=== PATIENT | male | born 1950 | race Two or more races ===

== ENCOUNTER 2017-01-12 14:40 | Emergency (ER) | payer MEDICAID, OTHER ==
[2017-01-12] MEDS ORDERED: ONDANSETRON 4 MG/2 ML VIAL ONE ×2 (14:47→16:06)
[2017-01-12] MEDS ORDERED: IOPAMIDOL (ISOVUE-300) 100 ML BTL IV ONE (14:55)
--- NOTE | 2017-01-12 14:55 | EDPHY ---
H & P Smoking Status: Former smoker HPI/ROS: CHIEF COMPLAINT: chest pain, head trauma HISTORY OF PRESENT ILLNESS: Patient is a 66-year-old limited trauma activation who presents to the emergency department with multiple complaints. 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 He thought that the tree was going one direction and then saw that it was coming towards him. He attempted to move the tree struck him in the back. He struck his face on the ground. He had a brief LOC (reported 30 seconds). The patient complains of mild headache. He has left flank/back pain with mild shortness of breath. No hemoptysis. Patient denies chest pain or abdominal pain. No pelvic pain. No extremity pain. EMS reports that the patient has palpable crepitus on the left side/left flank area. The patient's vital signs were stable. Sugar was greater than 200. Patient was given fentanyl 50 mcg IV in route. REVIEW OF SYSTEMS: My complete review of systems is negative except as mentioned in the HPI. ( Salina Savage) Past Medical/Surgical History: Denies Past surgical history: Denies Social history: Patient does not smoke. Does not use alcohol. (Salina Savage S) Physical Exam: Vitals noted. 142/73, 90, sat 92% GENERAL: No acute distress, alert. C-collar in place. HEAD: patient has dried blood in swelling over his right brow. Patient has abrasion over the bridge of his nose. No hematoma. No palpable mass or crepitus. Wound was cleaned. The patient has a 3 cm right brow irregular laceration. No palpable foreign body. EYES: PERRLA, EOMI, normal to inspection. ENT: Airway intact, no dental or oral injury, no malocclusion, no hemotympanum , normal external examination. NECK: The trachea is midline. There is no crepitus. The C-spine is nontender. NEXUS criteria is negative (no midline tenderness, no distracting injury, no altered mental status, no recent alcohol use, no focal neurologic deficit). RESPIRATORY: Clear to auscultation bilaterally, no rales, rhonchi or wheezing. Patient has left lateral/lower crepitus. CVS: Regular rate and rhythm, no rubs, murmurs, or gallops. ABDOMEN: Soft, nontender, nondistended, normal bowel sounds. There is a notable abrasion in the suprapubic region. Pelvis: Stable. No tenderness palpation. Hips full range of motion. Abrasion left hip. GENITAL/RECTAL: Normal external exam. BACK: left flank crepitus. No bruising. Normal to inspection, no spinal tenderness, no spinal step off, no notable bruising or abrasions. SKIN: Normal color, warm, dry. No pallor or diaphoresis. EXTREMITIES: Right upper extremity: Abrasion forearm. No tenderness palpation. Neurovascular intact distally. Left upper extremity: Atraumatic. No visible signs of trauma. No tenderness palpation. Neurovascular intact distally. Right lower extremity: Abrasion knee. Ligaments stable. FROM. No visible signs of trauma. No tenderness palpation. Neurovascular intact distally. Left lower extremity: Atraumatic. Ligaments stable. FROM. No tenderness palpation. Neurovascular intact distally. Atraumatic, neurovascularly intact distally in all extremities, pelvis is stable , hips with full range of motion, moves all extremities freely. NEURO/PSYCH: Alert and oriented x 3, GCS 15, normal mood and affect, normal motor sensory exam. (Salina Savage S) Constitutional: Initial Vital Signs Temperature (C) 36.4 C 01/12/17 15:03 Heart Rate 80 01/12/17 15:03 Respiratory Rate 16 01/12/17 15:03 Blood Pressure 140/84 H 01/12/17 15:03 O2 Sat (%) 94 01/12/17 15:03 O2 Delivery Mode Room Air Allergies/Adverse Reactions: No Known Allergies Allergy (Unverified 01/12/17 15:02) Home Medications: Medication Instructions Recorded Cephalexin [Keflex] 500 mg PO QID 5 Days 09/23/15 oxyCODONE/APAP 5/325 [Percocet 1 - 2 tab PO Q6H PRN #20 tab 09/23/15 5/325] Lidocaine 5% [Lidoderm 5% Patch 1 ea TD DAILY #0 patch 01/12/17 (*)] Ondansetron Odt [Zofran Odt 4 mg 4 mg PO Q4PRN PRN #7 tab 01/12/17 (*)] oxyCODONE/APAP 5/325 [Percocet 1 - 2 tab PO Q4PRN PRN #11 tab 01/12/17 5/325 (*)] Medical Decision Making Procedures: My involvement in the care this patient solely for the repair of the laceration. Please see the note of Dr. Savage for all other aspects of care PROCEDURE: Laceration repair Consent: Verbal Location: right eyebrow Length of repair: 3 cm Complexity: moderate Layer involvement: single Anesthesia: local, performed by Dr. Svaage Irrigation: Extensive Debridement: minimal Procedure description: after anesthetizing, irrigating and minimal debridement , wound margins were approximated with 9, simple interrupted sutures without complication. Good approximation of the wound margins. Hemostasis noted. There is no foreign body in the wound bed prior to closing. Suture/Staple material: 6-0 Prolene, 9 simple interrupted Wound care: Routine as discussed Suture/Staple removal: 5-7 Days (Valentino Parham) Procedure: Trauma ultrasound. Limited echocardiogram for pericardial effusion. Limited bedside ultrasound was performed and interpreted by myself for the indication of: thoracoabdominal trauma utilizing the thoracoabdominal emergency ultrasound protocol. Limited transthoracic echocardiogram: The pericardium was visualized and found to be negative for pericardial fluid. The study was negative for pericardial effusion. Limited abdominal ultrasound for blunt abdominal trauma. 1) The right upper quadrant was visualized and was found to be negative for intraperitoneal fluid. 2) The left upper quadrant was visualized and found to have a good interface between the kidney and spleen. However there was noted free fluid superior to kidney. The study was felt to be positive for free fluid. Limited pelvic ultrasound was conducted for abdominal trauma. The bladder was visualized and did not reveal an anechoic area outside of the adjacent urinary bladder. The study was felt to be negative for free intraperitoneal fluid. (Salina Savage) ED Course/Re-evaluation: I met EMS on arrival. The patient was limited trauma activation. Patient's initial vital signs were noted to be normal. The patient had a bedside fast exam. This revealed fluid in the left gutter. Please refer the dictated report. I contacted Trauma surgery. With stable vital signs CT scan was ordered. I discussed the plan with the patient. I answered all his questions. Patient did not want more pain medication at this time. [place] [address]. Chemistry panel was notable for platelets being low at 70. I compared this with previous platelet count in 2014 which was greater than 300. On recheck the patient is stable. He has no new complaints. No new respiratory distress. On recheck the patient had repeat episodes of nausea. He is given Zofran 4 mg IV. No new respiratory distress. Clear breath sounds bilaterally. Patient refused pain medication. I discussed the case with Dr. Lopez from the trauma service. Both Dr. Lopez and myself reviewed the images with Dr. Иван Hutton. Please refer the dictated report by Dr. Hutton. Patient is noted to have multiple rib fractures as well as a small pneumothorax. The patient has a hemothorax. No intraperitoneal injury. Head and C-spine CTs were negative. I discussed the treatment plan with Dr. Lopez. He recommend the patient received Toradol and fentanyl. These were given for pain control. Patient does not need a chest tube at this time based on his images and clinical presentation. 16 15: I rechecked the patient. He had no neurologic deficits. No C-spine tenderness palpation. His C-collar was removed. Patient had his laceration repaired by the PA. Please refer the dictated note. Dr. Lopez was in the room to evaluate the patient. Dr. Lopez states the patient does not want admission. Patient ambulated to the bathroom well. I observed the patient while he ambulated. 1640: My recommendation was for admission. I discussed this at length with the patient. However, the patient does not want admission at this time. I discussed the reasons for admission and answered his questions. I discussed my concern with his low platelet level, elevated white count level, rib fractures, hemothorax and small pneumothorax. Patient was competent to make his decisions. I again discussed the case with Dr. Lopez. He recommends a lidocaine patch in addition to his other medications. He recommends the patient return tomorrow for repeat CXR. Patient was given incentive spirometer. The patient is aware the plan. He was given warnings prior to leaving. He will return with worsening symptoms. (Salina Savage S) Differential Diagnosis: My differential includes but is not limited to rib fracture, hemothorax, pneumothorax, kidney injury, subarachnoid hemorrhage, subdural hematoma, epidural hematoma, spinal injury, bladder injury, pelvic injury, laceration, abrasion (Salina Savage S) Critical Care Time: The patient required 35 minutes of critical care time. This was exclusive of any unbundled procedure. This was due to the patient's presentation, noted crepitus, need for frequent rechecks, fluid seen on ultrasound, consultation with trauma service. (Salina Savage) - Data Points Laboratory Results: Laboratory Results 01/12/17 14:59 01/12/17 14:59 01/12/17 01/12/17 01/12/17 16:40 16:01 14:59 WBC 17.17 H 10^3/uL (3.80-9.50) RBC 4.63 10^6/uL (4.40-6.38) Hgb 14.3 g/dL (13.7-17.5) POC Hgb Hct 43.1 % (40.0-51.0) POC Hct MCV 93.1 fL (81.5-99.8) MCH 30.9 pg (27.9-34.1) MCHC 33.2 g/dL (32.4-36.7) RDW 13.6 % (11.5-15.2) Plt Count 70 L 10^3/uL (150-400) MPV 8.5 L fL (8.7-11.7) Neut % (Auto) 81.4 H % (39.3-74.2) Lymph % (Auto) 12.4 L % (15.0-45.0) Platte % (Auto) 4.2 L % (4.5-13.0) Eos % (Auto) 0.5 L % (0.6-7.6) Baso % (Auto) 0.3 % (0.3-1.7) Nucleat RBC Rel Count 0.0 % (0.0-0.2) Absolute Neuts (auto) 13.96 H 10^3/uL (1.70-6.50) Absolute Lymphs (auto) 2.13 10^3/uL (1.00-3.00) Absolute Monos (auto) 0.72 10^3/uL (0.30-0.80) Absolute Eos (auto) 0.09 10^3/uL (0.03-0.40) Absolute Basos (auto) 0.06 10^3/uL (0.02-0.10) Absolute Nucleated RBC 0.00 10^3/uL (0-0.01) Immature Gran % 1.2 H % (0.0-1.1) Immature Gran # 0.21 H 10^3/uL (0.00-0.10) PT 13.7 SEC (12.0-15.0) INR 1.06 (0.83-1.16) APTT 22.5 L SEC (23.0-38.0) POC Sodium Sodium 141 mEq/L (134-144) POC Potassium Potassium 4.8 mEq/L (3.5-5.2) POC Chloride Chloride 102 mEq/L (97-110) Carbon Dioxide 27 mEq/l (22-31) Anion Gap 12 mEq/L (8-16) POC BUN BUN 12 mg/dL (7-23) Creatinine 0.8 mg/dL (0.7-1.3) POC Creatinine Estimated GFR > 60 Glucose 170 H mg/dL (70-100) POC Glucose Calcium 8.9 mg/dL (8.5-10.4) Specimen Hemolysis 154 Urine Color YELLOW Urine Appearance HAZY Urine pH 6.0 (5.0-7.5) Ur Specific Anderson > 1.035 H (1.002-1.030) Urine Protein NEGATIVE (NEGATIVE) Urine Ketones NEGATIVE (NEGATIVE) Urine Blood NEGATIVE (NEGATIVE) Urine Nitrate NEGATIVE (NEGATIVE) Urine Bilirubin NEGATIVE (NEGATIVE) Urine Urobilinogen NEGATIVE EU (0.2-1.0) Ur Leukocyte Esterase NEGATIVE (NEGATIVE) Ur Culture Indicated? NOT INDICATED (NI) Urine Glucose NEGATIVE (NEGATIVE) Patient ABO/Rh B POSITIVE Antibody Screen NEGATIVE 01/12/17 14:47 WBC RBC Hgb POC Hgb 15.0 gm/dL (14.5-17.3) Hct POC Hct 44 % (42.8-50.6) MCV MCH MCHC RDW Plt Count MPV Neut % (Auto) Lymph % (Auto) Platte % (Auto) Eos % (Auto) Baso % (Auto) Nucleat RBC Rel Count Absolute Neuts (auto) Absolute Lymphs (auto) Absolute Monos (auto) Absolute Eos (auto) Absolute Basos (auto) Absolute Nucleated RBC Immature Gran % Immature Gran # PT INR APTT POC Sodium 140 mEq/L (134-144) Sodium POC Potassium 3.2 L mEq/L (3.3-5.0) Potassium POC Chloride 101 mEq/L (96-108) Chloride Carbon Dioxide Anion Gap POC BUN 11 mg/dL (7-23) BUN Creatinine POC Creatinine 0.9 mg/dL (0.8-1.5) Estimated GFR Glucose POC Glucose 174 H mg/dL (70-100) Calcium Specimen Hemolysis Urine Color Urine Appearance Urine pH Ur Specific Anderson Urine Protein Urine Ketones Urine Blood Urine Nitrate Urine Bilirubin Urine Urobilinogen Ur Leukocyte Esterase Ur Culture Indicated? Urine Glucose Patient ABO/Rh Antibody Screen Medications Given: Discontinued Medications Fentanyl (Sublimaze) 50 mcg IVP EDNOW ONE Stop: 01/12/17 16:17 Last Admin: 01/12/17 16:18 Dose: 50 mcg Ketorolac Tromethamine (Toradol) 30 mg IVP EDNOW ONE Stop: 01/12/17 16:17 Last Admin: 01/12/17 16:18 Dose: 30 mg Ondansetron HCl (Zofran) 4 mg IVP EDNOW ONE Stop: 01/12/17 16:17 Last Admin: 01/12/17 16:18 Dose: 4 mg Point of Care Test Results: 01/12/17 14:47 POC Sodium 140 POC Potassium 3.2 L POC Chloride 101 POC BUN 11 POC Creatinine 0.9 POC Glucose 174 H Departure - Departure Disposition: Home, Routine, Self-Care Clinical Impression: Hemothorax on left, Pneumothorax on left Facial laceration Qualifiers: Encounter type: initial encounter Qualifier Code: (S01.81XA) Laceration without foreign body of other part of head, initial encounter Rib fractures Qualifiers: Encounter type: initial encounter Rib fracture type: multiple ribs Fracture type: closed Laterality: left Qualifier Code: (S22.42XA) Multiple fractures of ribs, left side, initial encounter for closed fracture Contusion of face Qualifiers: Encounter type: initial encounter Qualifier Code: (S00.83XA) Contusion of other part of head, initial encounter Condition: Good Instructions: Oxycodone/Acetaminophen (By mouth), Ondansetron (By mouth), Traumatic Pneumothorax (ED), Laceration (ED), Rib Fracture (ED), Concussion (ED) , Thrombocytopenia (ED) Additional Instructions: I recommended that you be admitted to the hospital for further observation. You have both a pneumothorax and hemothorax. These are likely secondary to trauma and rib fractures. I have concerns that these could enlarging it worse. If you have increasing shortness of breath or chest pain you should return immediately to the emergency department. Also return if you have increasing headache, neck pain, weakness or numbness. You have a low platelet count. This needs to be worked up by your primary care physician. YOU NEED TO RETURN TOMORROW TO HAVE A REPEAT CHEST X-RAY. Your sutures need to be removed in 7 days. Referrals: David Alejandra MD [Medical Doctor] - 3-4 days, if not improved Carmen Murdock MD [Medical Doctor] - 2-3 days, call for appt. Prescriptions: Lidocaine 5% [Lidoderm 5% Patch (*)] 1 ea TD DAILY #0 patch oxyCODONE/APAP 5/325 [Percocet 5/325 (*)] 1 - 2 tab PO Q4PRN PRN #11 tab PRN Reason: For Moderate To Severe Pain Ondansetron Odt [Zofran Odt 4 mg (*)] 4 mg PO Q4PRN PRN #7 tab PRN Reason: For Nausea & Vomiting
[2017-01-12 15:04] LABS: % IMMATURE GRANULYOCYTES 1.2 % (0.0-1.1); ABSOLUTE IMMATURE GRANULOCYTES 0.21 10^3/uL (0.00-0.10); ADD DIFF? NO; ADD MORPH? NO; ADD SCAN? NO; ATYPICAL LYMPHOCYTE FLAG 0 (0-99); FRAGMENT RBC FLAG 0 (0-99); HEMATOCRIT 43.1 % (40.0-51.0); HEMOGLOBIN 14.3 g/dL (13.7-17.5); LEFT SHIFT FLG 20 (0-99); LIPEMIA HEMOLYSIS FLAG 80 (0-99); MEAN CELL HEMOGLOBIN 30.9 pg (27.9-34.1); MEAN CELL HEMOGLOBIN CONCENTR. 33.2 g/dL (32.4-36.7); MEAN CELL VOLUME 93.1 fL (81.5-99.8); MEAN PLATELET VOLUME 8.5 fL (8.7-11.7); PLATELET CLUMPS FLAG 40 (0-99); PLATELET COUNT 70 10^3/uL (150-400); RED BLOOD CELL COUNT 4.63 10^6/uL (4.40-6.38); RED CELL DISTRIBUTION WIDTH 13.6 % (11.5-15.2)
[2017-01-12 15:22] LABS: ANION GAP 12 mEq/L (8-16); CALCIUM 8.9 mg/dL (8.5-10.4); CARBON DIOXIDE 27 mEq/l (22-31); CHLORIDE 102 mEq/L (97-110); CREATININE 0.8 mg/dL (0.7-1.3); GLOMERULAR FILTRATION RATE > 60; GLUCOSE 170 mg/dL (70-100); POTASSIUM 4.8 mEq/L (3.5-5.2); SODIUM 141 mEq/L (134-144); SPECIMEN HEMOLYSIS 154
--- NOTE | 2017-01-12 15:42 | CT ---
1. CT Head Without Contrast History: Struck in back of head while cutting tree. Technique: Noncontrast images through the head. Soft tissue and bone window evaluation is performed. Dose reduction techniques were utilized. Findings: There is no evidence for hemorrhage, mass lesion, acute infarction, intracranial edema, hyd rocephalus or abnormal intracranial calcification. No subarachnoid blood is identified. There is no m idline shift. The ambient cistern is patent. Bone window evaluation reveals normally aerated paranasa l and mastoid sinuses. There is chronic nodular mucosal thickening involving both maxillary sinuses. There is no evidence of pneumocephalus or a basilar skull fracture. There is soft tissue swelling ove rlying the right upper orbit region without underlying facial bone fracture. Impression: No acute posttraumatic cranial or intracranial abnormality identified. 2. CT Cervical Spine Without Contrast History: Trauma. Hit in head by tree. Technique: Multislice helical CT through the cervical spine without contrast from the skull base to T 1. Soft tissue and bone evaluation is performed. Sagittal and coronal reconstructions are obtained an d reviewed. Dose reduction techniques were utilized. Findings: Cervical alignment is anatomic. No fracture or dislocation is identified. The relationship between skull base and C1 is normal. The C1-C2 articulation is normally aligned, but associated with osteoarthritis.. The odontoid process is intact. There is moderate degenerative narrowing of the C5-C 6 disk space which is associated with marginal sclerosis , osteophyte formation and a vacuum disk phe nomenon. There is degenerative disk bulging or protrusion at all cervical disk levels. Facet joints a re normally aligned. The cervical thoracic junction is normally aligned. Soft tissue window evaluati on does not show evidence of epidural or prevertebral hematoma. Incidentally noted is benign sclerosi s in the left mandibular condyle neck and in the right C6 articular pillar. Impression: No acute posttraumatic abnormality identified. Results called and discussed with SAURABH GOMEZ, at 01/12/2017 15:40 Final results are concordant with the initial interpretation. General information for patients regarding this examination can be found at [email or web address]. If you have questions or comments about this report, please contact me at [phone] (hospital) or [phone] (cell). General information for patients regarding this examination can be found at [email or web address]. If you have questions or comments about this report, please contact me at [phone] (hospital) or [phone] ([facility]).
--- NOTE | 2017-01-12 15:42 | CT ---
1. CT Head Without Contrast History: Struck in back of head while cutting tree. Technique: Noncontrast images through the head. Soft tissue and bone window evaluation is performed. Dose reduction techniques were utilized. Findings: There is no evidence for hemorrhage, mass lesion, acute infarction, intracranial edema, hyd rocephalus or abnormal intracranial calcification. No subarachnoid blood is identified. There is no m idline shift. The ambient cistern is patent. Bone window evaluation reveals normally aerated paranasa l and mastoid sinuses. There is chronic nodular mucosal thickening involving both maxillary sinuses. There is no evidence of pneumocephalus or a basilar skull fracture. There is soft tissue swelling ove rlying the right upper orbit region without underlying facial bone fracture. Impression: No acute posttraumatic cranial or intracranial abnormality identified. 2. CT Cervical Spine Without Contrast History: Trauma. Hit in head by tree. Technique: Multislice helical CT through the cervical spine without contrast from the skull base to T 1. Soft tissue and bone evaluation is performed. Sagittal and coronal reconstructions are obtained an d reviewed. Dose reduction techniques were utilized. Findings: Cervical alignment is anatomic. No fracture or dislocation is identified. The relationship between skull base and C1 is normal. The C1-C2 articulation is normally aligned, but associated with osteoarthritis.. The odontoid process is intact. There is moderate degenerative narrowing of the C5-C 6 disk space which is associated with marginal sclerosis , osteophyte formation and a vacuum disk phe nomenon. There is degenerative disk bulging or protrusion at all cervical disk levels. Facet joints a re normally aligned. The cervical thoracic junction is normally aligned. Soft tissue window evaluati on does not show evidence of epidural or prevertebral hematoma. Incidentally noted is benign sclerosi s in the left mandibular condyle neck and in the right C6 articular pillar. Impression: No acute posttraumatic abnormality identified. Results called and discussed with SAURABH GOMEZ, at 01/12/2017 15:40 Final results are concordant with the initial interpretation. General information for patients regarding this examination can be found at [email or web address] If you have questions or comments about this report, please contact me at [phone] (hospital) or [phone] (cell). General information for patients regarding this examination can be found at [email or web address]. If you have questions or comments about this report, please contact me at [phone] (hospital) or [phone] ([facility]).
--- NOTE | 2017-01-12 16:03 | CT ---
1. CTA Scan of the Chest (With Contrast), 1513 p.m. Clinical Indications: trauma. Fall after being hit by a tree. Chest pain. Technique: During machine power injection of 90 mL Isovue 300 intravenously, multidetector helical C T imaging was performed from the superior thoracic inlet to the diaphragm. The radiologist manipulat ed images at the computer workstation. Dose reduction techniques were utilized. Findings: The thoracic aorta is normal in size without dissection or mediastinal hematoma. Heart size is normal without pericardial effusion. There is scattered LAD coronary artery atherosclerotic calci fication. There is a small left apical pneumothorax. There are displaced posterior right 10th and 11t h rib fractures. A splinter of the comminuted left 10th and 11th ribs are anteriorly displaced. There are nondisplaced left lateral third through eighth rib fractures there is left pleural fluid, likely hemorrhage. There is a left lower lobe contusion. At the medial left lung base is a long pneumatocel e likely related to a puncture from one of the rib fragments. There is left posterior chest wall subc utaneous emphysema. There are bilateral upper lobe subpleural pleural blebs consistent with emphysema . The left upper lobe and right lung are normally aerated. There is a small amount of compression ate lectasis at the right lung base. There is a mild compression of the T6 vertebral body, likely old sin ce it is associated with exuberant lateral osteophytes. No other thoracic compressions are identified . No obviously acute thoracic spinal fracture is identified. The sternum and manubrium are intact. Impression: 1. Intact mediastinal 2. Multiple left rib fractures. The posterior right 10th and 11th ribs are comminuted and have fragme nts that are anteriorly displaced and likely responsible for a small lung laceration (pneumatocele) a t the medial left base. 3. Small left hemopneumothorax. 4. Old mild T6 compression. CT Scan of the Abdomen and Pelvis (multiphasic-extended study) Clinical Indications: Trauma, fall, hit by tree Technique: Multidetector helical CT imaging was performed through the abdomen and pelvis with the ad ministration of 90 mL Isovue-300 IV contrast and reviewed at multiple windows. Images are obtained th rough the abdomen and pelvis during the arterial phase and then repeated during the portal venous pha se At the discretion of the emergency physician, no gastrointestinal contrast was given. Dose reducti on techniques were utilized. Findings: No contrast extravasation is identified during the arterial or delayed imaging phase. The a bdominal aorta is normal in size and without evidence of dissection or thrombus. The infrarenal abdom inal aorta and common iliac arteries are markedly tortuous. Abdomen: Subcutaneous emphysema from the patient's chest wall injury extends posteriorly along the po sterior margin of the posterior paraspinal musculature to the level of the upper pelvis. The liver is normal. The biliary ducts and gallbladder are unremarkable. The pancreas and spleen are normal. T he adrenal glands and kidneys are normal. There is a small incidental cyst in the lower pole of each kidney. There is no mesenteric edema or abnormal bowel wall enhancement. No free fluid is identified in the abdomen or pelvis. No traumatic sequelae are found. Pelvis: The bladder has a normal contour. There are no masses, free fluid, or free air seen. Mild c ompressions of L1, L2 and L5 superior endplates are likely old. There is prominent sclerosis in the right side of the L3 vertebral body. There is a benign bone island in the right femoral neck. Impression: No acute posttraumatic abnormality within the abdomen and pelvis. Final concordant results communicated to SAURABH GOMEZ, at 01/12/2017 15:58
[2017-01-12] MEDS ORDERED: KETOROLAC 30 MG/1 ML SDV ONE (16:12)
[2017-01-12] MEDS ORDERED: fentaNYL 100 MCG/2 ML INJ ONE (16:12)
[2017-01-12] MEDS ORDERED: KETOROLAC 30 MG/1 ML SDV IVP ONE (16:16)
[2017-01-12] MEDS ORDERED: ONDANSETRON 4 MG/2 ML VIAL IVP ONE (16:16)
[2017-01-12] MEDS ORDERED: fentaNYL 100 MCG/2 ML INJ IVP ONE (16:16)
[2017-01-12 16:18] LABS: INR 1.06 (0.83-1.16); PROTIME(PATIENT) 13.7 SEC (12.0-15.0)
[2017-01-12 16:19] LABS: APTT 22.5 SEC (23.0-38.0)
[2017-01-12 16:26] VITALS: TEMP 98.4
[2017-01-12 16:51] LABS: COLOR YELLOW; LEUKOCYTE ESTERASE,URINE NEGATIVE (NEGATIVE); NITRITE,URINE NEGATIVE (NEGATIVE)
[2017-01-12] MEDS ORDERED: ONDANSETRON 4MG PREPACK#2 BTL TAKEHOME ONE (18:04)
[2017-01-12] MEDS ORDERED: OXYCODONE/APAP 5/325MG PREPACK#4 BTL TAKEHOME ONE ×2 (18:04→18:05)
[2017-01-12 18:30] VITALS: BP 112/70; PULSE 97; RESP 16; O2SAT 92
--- NOTE | 2017-01-12 19:09 | GCON ---
[f rep st] CONSULTATION REASON FOR CONSULTATION: Left rib fractures. HISTORY: The patient is a 66-year-old male who was felling a rather large tree. It did not fall the direction he had intended. He ran away from the tree and, unfortunately, the tree caught up with him. He was pinned to the ground by a large branch. the tree continued to move and rolled off of him. He was able to get up. He sat down and decided that was too uncomfortable. He got up and stood up. 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 EMS was summoned, and he arrived to [facility]. Note is made he had no loss of consciousness, and his breathing was, according to him, actually uncompromised on arrival. He had no external bleeding. He last ate green tea and chocolate at noon. He was evaluated by the ER physicians. His CT of his head and neck was negative. CT of his chest showed multiple "greenstick" rib fractures, but left full thickness fractures were noted at ribs 11 and 12. There is a small piece of bone in the lung parenchyma, and in the left lower lobe there is a contusion and a small pneumatocele. I was asked to come see the patient. SOCIAL HISTORY: He smoked from ages [age] at less than a pack a day. He does not drink. ALLERGIES: He has no known drug allergies. MEDICATIONS: His is not taking medications, but does take supplements as he is a vegan. PAST MEDICAL HISTORY: His only prior surgery has been a laparoscopic bilateral inguinal hernia repair by Dr. Karl Hastings. There is no history of rheumatic fever, tuberculosis, hepatitis, HIV or transfusions. REVIEW OF SYSTEMS: There is no history of concussion in the past. He wears lenses for visual correction. Note is made that he has a laceration above his eye ( repaired ) that was thought to be due to fracturing of his glasses. He was unable to locate his glasses after the accident. He does have 1 dental implant. Review of systems otherwise quite negative. No limits on his activities. No history of steroid use. PHYSICAL EXAMINATION: GENERAL: He is seen lying in ER gurney 6. SKIN: He has a laceration below his right eye brow, which is being repaired by the physician trust administrative assistant. Once that repair was completed, I was able to examine the patient. HEENT: Skull is normocephalic. There is some swelling to his left upper eye and right lateral cheek, but palpably it is not tender at these sites. There is no Carranza sign. His extraocular movements are intact. Pupils are equal, round, reactive to light and accommodation. He has normal dental occlusion. NEURO: He is oriented to person, place, and time. Neurologically his strength is equal bilaterally. No focal lateralizing findings. NECK: Nontender. CLAVICLES: Palpably normal. UPPER EXTREMITIES: Right and left upper extremities are unremarkable. CARDIAC: Distant heart tones. LUNGS: Clear to auscultation. Because of the known left rib fractures , I did not compress his chest. There had been a question on the FAST examination whether there was any fluid near the kidney. ABDOMEN: Soft and nontender. LABORATORY DATA: The CT scan does not show any evidence of fluid below the diaphragm, but does show the above-mentioned findings of the left rib fractures , pulmonary contusion, and pneumatocele. Pelvis stable to AP and lateral compression. His lower extremities are ranged and found to be unremarkable. There is abrasion medial to his right patella. There are 2 small abrasions on his lower legs anteriorly. His comfort level is tolerable for him. I have suggested admission for pulmonary care. At this point, he defers. He says he is a man of modest means and would like to do as much as he can as an outpatient. I am going to watch him for a short while in the ER to see how he does. /[id number]/MODL MTDD
== END 2017-01-12 18:29 | disposition home or self-care (01) ==
LOC: EDUNIT#
PROC: 0HQ1XZZ Repair Face Skin, External Approach (ICD-10-PCS; principal; 2017-01-12)
DX: S22.42XA Multiple fractures of ribs, left side, initial encounter for closed fracture (principal); S01.111A Laceration without foreign body of right eyelid and periocular area, initial encounter; S27.2XXA Traumatic hemopneumothorax, initial encounter; Z87.891 Personal history of nicotine dependence; W22.8XXA Striking against or struck by other objects, initial encounter; Y92.69 Other specified industrial and construction area as the place of occurrence of the external cause; Y99.0 Civilian activity done for income or pay; Y93.89 Activity, other specified
CPT/HCPCS: 12013; 70450; 71260; 72125; 74177; 96374; 96375; 99291; J1885; J2405; J3010; Q9967; 82947-QW

== ENCOUNTER 2017-01-13 12:40 | Emergency (ER) | payer OTHER ==
[2017-01-13 12:45] VITALS: RESP 20
--- NOTE | 2017-01-13 12:51 | EDPHY ---
H & P Time Seen by Provider: 01/13/17 12:48 HPI/ROS: CHIEF COMPLAINT: "I am here for repeat x-ray HISTORY OF PRESENT ILLNESS: The patient is a 66-year-old male who presents to the emergency department for repeat chest x-ray. Patient was seen by me as a limited trauma activation after falling tree struck him. Patient was found to have a hemothorax as well as a pneumothorax. Because of this was recommended the patient come back to the emergency department to have a repeat chest x-ray. The patient states he is doing better. He has no worsening shortness of breath. He denies new back pain. No headache, nausea or vomiting. REVIEW OF SYSTEMS: My complete review of systems is negative except as mentioned in the HPI. Smoking Status: Former smoker Physical Exam: Vitals noted GENERAL: No acute distress, alert. HEENT: Eyes normal to inspection, no signs of dehydration. Suture laceration appears to be healing well. NECK: No spinal tenderness palpation, supple. RESPIRATORY: Clear to auscultation bilaterally, no rales, rhonchi or wheezing. Patient still with left lateral crepitus. CVS: Regular rate and rhythm, no rubs, murmurs, or gallops. ABDOMEN: Soft, nontender, nondistended, no organomegaly. BACK: Normal to inspection, no CVA tenderness. No spinal tenderness. SKIN: Normal color, no rash, warm, dry. No pallor. EXTREMITIES: No pedal edema, no calf tenderness, no Homans sign or cords, no joint swelling. NEURO/PSYCH: [Alert and oriented x3, normal mood and affect, normal motor sensory exam. Constitutional: Initial Vital Signs Temperature (C) 36.7 C 01/13/17 12:41 Heart Rate 74 01/13/17 12:41 Respiratory Rate 20 01/13/17 12:41 Blood Pressure 107/65 01/13/17 12:41 O2 Sat (%) 93 01/13/17 12:41 O2 Delivery Mode Room Air Allergies/Adverse Reactions: No Known Allergies Allergy (Unverified 01/12/17 15:02) Home Medications: Medication Instructions Recorded Cephalexin [Keflex] 500 mg PO QID 5 Days 09/23/15 oxyCODONE/APAP 5/325 [Percocet 1 - 2 tab PO Q6H PRN #20 tab 09/23/15 5/325] Lidocaine 5% [Lidoderm 5% Patch 1 ea TD DAILY #0 patch 01/12/17 (*)] Ondansetron Odt [Zofran Odt 4 mg 4 mg PO Q4PRN PRN #7 tab 01/12/17 (*)] oxyCODONE/APAP 5/325 [Percocet 1 - 2 tab PO Q4PRN PRN #11 tab 01/12/17 5/325 (*)] Medical Decision Making ED Course/Re-evaluation: In the emergency department I discussed the plan with the patient. I answered all his questions. Chest x-ray was ordered. Chest x-ray: Please refer the dictated report by Dr. Alex Chaudhary. I reviewed the images personally with him. Of note the patient has a noted hemothorax on the left. This is slightly larger than seen on the CT images from yesterday. Patient also has a noted left-sided pneumothorax. This also is slightly bigger than the images seen on CT scan yesterday. I paged Dr. Lopez from Trauma Service. Dr. Lopez evaluated the patient. He recommended the patient have drainage of the fluid noted on x-ray. The patient wants a minimal intervention. He does not want to be admitted the hospital or chest tube at this time. He does agree come back to the emergency department tomorrow for recheck. I discussed this with the patient prior to leaving. I answered all his questions. He is reliable and competent. Differential Diagnosis: My differential includes but is not limited to hemothorax, pneumothorax, rib fracture, electrolyte abnormality, sugar abnormality, bleeding disorder Departure - Departure Disposition: Home, Routine, Self-Care Clinical Impression: Hemothorax on left Pneumothorax Qualifiers: Pneumothorax type: traumatic Encounter type: subsequent encounter Qualifier Code: (S27.0XXD) Traumatic pneumothorax, subsequent encounter Condition: Good Instructions: Traumatic Pneumothorax (ED) Additional Instructions: Return with increasing shortness of breath, pain, or any other concerns. You need a repeat chest x-ray tomorrow morning Referrals: Fortino Miller MD [Primary Care Provider] - 1-2 days without fail
--- NOTE | 2017-01-13 13:38 | DX ---
PA and lateral chest. Clinical History: trauma (comparison from yesterday) Comparison Study: Chest CT January 12, 2017.. Findings: There is a left hemopneumothorax. A small apical component of free air is present, along wi th costophrenic angle blunting inferiorly compatible with pleural blood. Parenchymal contusion of the left lower lobe is also present. No midline shift. Mild subcutaneous emphysema over the lateral left chest. Fluid-fluid level is present posteriorly. Right lung is clear. Heart size is normal.. Impression: Left hemopneumothorax with left lower lobe parenchymal consolidation. Examination reviewed with Dr. Salina Savage..
[2017-01-13 14:34] VITALS: BP 107/63; PULSE 60; TEMP 98.2; O2SAT 96
== END 2017-01-13 14:33 | disposition home or self-care (01) ==
DX: S27.2XXD Traumatic hemopneumothorax, subsequent encounter (principal); Z87.891 Personal history of nicotine dependence; W20.8XXD Other cause of strike by thrown, projected or falling object, subsequent encounter

== ENCOUNTER 2017-01-14 09:49 | Inpatient (IN) | payer OTHER ==
--- NOTE | 2017-01-14 10:54 | DX ---
Chest, Two Views at 0955 hours on January 14, 2017 History: Left hydropneumothorax. Dyspnea, chest pain, fall from tree. Comparison: 01/13/2017. Findings: Cardiac silhouette is within normal range increase in size of moderate left hydropneumothor ax since yesterday. The pneumothorax is approximately 20% with air-fluid level in the left lower lobe and a moderate-sized pleural effusion. Minimal right pleural effusion. Pleural parenchymal scarring in the right lung apex. No mediastinal shift. Left lower lobe pulmonary contusion again noted. Impression: Increasing moderate left hydropneumothorax with moderate pleural effusion and left lower lobe pulmonary contusion. Findings and recommendations discussed with Emergency Department physician, SAURABH GOMEZ at 10 41 hour, 01/14/2017. Final report concurs with initial preliminary interpretation.
--- NOTE | 2017-01-14 11:06 | EDPHY ---
H & P Time Seen by Provider: 01/14/17 10:55 HPI/ROS: CHIEF COMPLAINT: I am here for repeat x-ray" HISTORY OF PRESENT ILLNESS: Patient is a 66-year-old male who presents to the emergency department for repeat chest x-ray. He was seen the previous 2 days by me after having a traumatic injury. Please refer the dictated report. Patient states he is feeling better. His cough is decreased. He has improved shortness of breath. His pain is well controlled. REVIEW OF SYSTEMS: My complete review of systems is negative except as mentioned in the HPI. Past Medical/Surgical History: Denies Past surgical history: Denies Smoking Status: Former smoker Physical Exam: Vitals noted GENERAL: No acute distress, alert. HEENT: Normal. Wound is healing well. NECK: Supple. RESPIRATORY: decreased breath sounds at the left base. Breath sounds are otherwise clear. There is still crepitus the left lateral aspect of his chest. CVS: Regular rate and rhythm, no rubs, murmurs, or gallops. ABDOMEN: Soft, nontender, nondistended, no organomegaly. BACK: Normal to inspection, no CVA tenderness. SKIN: Normal color, no rash, warm, dry. No pallor. EXTREMITIES: Normal. NEURO/PSYCH: Alert and oriented x3, normal mood and affect, normal motor sensory exam. No obvious cranial nerve deficit. Constitutional: Initial Vital Signs Temperature (C) 36.8 C 01/14/17 09:58 Heart Rate 85 01/14/17 09:58 Respiratory Rate 16 01/14/17 09:58 Blood Pressure 132/75 H 01/14/17 09:58 O2 Sat (%) 92 01/14/17 09:58 O2 Delivery Mode Room Air Allergies/Adverse Reactions: No Known Allergies Allergy (Unverified 01/14/17 10:02) Home Medications: Medication Instructions Recorded oxyCODONE/APAP 5/325 [Percocet 1 - 2 tab PO Q6H PRN #20 tab 09/23/15 5/325] Lidocaine 5% [Lidoderm 5% Patch 1 ea TD DAILY #0 patch 01/12/17 (*)] Ondansetron Odt [Zofran Odt 4 mg 4 mg PO Q4PRN PRN #7 tab 01/12/17 (*)] oxyCODONE/APAP 5/325 [Percocet 1 - 2 tab PO Q4PRN PRN #11 tab 01/12/17 5/325 (*)] Medical Decision Making ED Course/Re-evaluation: In the emergency department a repeat x-ray was performed. Chest x-ray: Please refer the dictated report by Dr. Aguila Danielle. There is increased fluid noted. I discussed the result with the patient. I paged Dr. Lopez. Dr. Lopez will come to the emergency department to evaluate the patient. Dr. Lopez evaluated the patient. He recommended chest tube placement. Patient consents and agrees. Chest tube was placed by Dr. Lopez. Patient tolerated procedure well. Patient had no new complaints after procedure. Patient will be admitted to Dr. Lopez. Differential Diagnosis: My differential includes but is not limited to increased hemothorax, pneumothorax, empyema, rib fracture - Data Points Medications Given: Discontinued Medications Hydromorphone HCl (Dilaudid) 0.5 mg IVP EDNOW ONE Stop: 01/14/17 11:54 Last Admin: 01/14/17 11:53 Dose: 0.5 mg Departure - Departure Disposition: Home, Routine, Self-Care Clinical Impression: Hemothorax on left, Pneumothorax on left Condition: Good
[2017-01-14] MEDS ORDERED: ONDANSETRON 4 MG/2 ML VIAL IVP PRN (11:26)
[2017-01-14] MEDS ORDERED: LR 1,000 ML IV SCH (11:30)
[2017-01-14] MEDS ORDERED: HYDROmorphONE/DILAUDID 2 MG TAB PO PRN (11:35)
[2017-01-14] MEDS ORDERED: HYDROmorphONE/DILAUDID 1 MG/ML SYR ONE (11:39)
[2017-01-14] MEDS ORDERED: HYDROmorphONE/DILAUDID 1 MG/ML SYR IVP ONE (11:53)
[2017-01-14] MEDS: KETOROLAC 30 MG/1 ML SDV IVP SCH ×2 (12:23→18:27)
--- NOTE | 2017-01-14 12:49 | GHP ---
[f rep st] HISTORY AND PHYSICAL DATE OF ADMISSION: 01/14/2017 HISTORY OF PRESENT ILLNESS: Please see the consultation of 2 days ago. 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 He had multiple gr eenstick fractures of his left chest with 2 ribs completely fractured and a small pneumatocele. He h ad 2 rib fractures on the right. He initially had refused admission or chest tube. He returned the following day (yesterday). He had a slight increase in his pneumothorax and development of a hydroth orax. Again, admission and chest tube were recommended; he deferred. He returns today and has incre asing pneumothorax and hemo-hydrothorax. He finally consents to admission and chest tube placement. Please see the prior dictations. There has been no change. He has moved from bed 15 to the Trauma [place] [facility] for chest tube placement. Please see additional note fo r details of chest tube placement. /[id number]/MODL
--- NOTE | 2017-01-14 13:04 | GOP ---
[f rep st] OPERATIVE REPORT DATE OF OPERATION: SURGEON: Gordon Lopez MD PREOPERATIVE DIAGNOSIS: Left hemopneumothorax with rib fractures. POSTOPERATIVE DIAGNOSIS: Left hemopneumothorax with rib fractures. PROCEDURE PERFORMED: Placement of a 28-Maori left chest tube. FINDINGS: DESCRIPTION OF PROCEDURE: The patient was positioned in the right lateral decubitus position in trauma bay 1. His right arm was elevated above his head. His left chest was carefully clipped, prepped and draped. A surgical time-out was carried out and agreed to by all members of the team. At approximately the 6th rib, the skin was anesthetized. With 1% Xylocaine, the deep tissue and the periosteum was also anesthetized as was the 5-6 intercostal space. The skin was sharply incised. A careful spreading technique was used to enter the chest. A sweep of the finger revealed that nothing was adherent to the chest wall. A 28-Maori chest tube was directed toward the apex. It was sutured in place with 2-0 silk suture. A vertical mattress suture of 2-0 silk was used to close the end of the incision. Chest tube was connected to suction. A sterile dressing was applied. A follow up chest x-ray was obtained, which showed re-expansion of the lung. I initially drained 120 cc out of the chest tube. /[id number]/MODL MTDD
--- NOTE | 2017-01-14 13:13 | DX ---
Chest, One View Portable - January 14, 2017 at 1209 hours History: Left chest tube, hydropneumothorax , recent trauma. Comparison: Earlier today at 0955 hours Findings: There is a left-sided chest tube with the tip in the left lung apex. Previous left pneumot horax has resolved with reexpansion of the left lung. There is residual left lower lobe pleuroparench ymal opacity, probably representing pulmonary contusion or pneumonia. Right lung is clear. No mediast inal shift. Mild cardiomegaly. Left lower lobe retrocardiac air, which may represent loculated air. Impression: 1. Chest tube in the left lung apex without pneumothorax. 2. Left lower lobe pleuroparenchymal opacity, probably representing pleural effusion and underlying c ontusion or pneumonia.
[2017-01-14] MEDS: LIDOCAINE 5% 1 EA PATCH TD SCH (13:22)
[2017-01-14] MEDS ORDERED: BISACODYL 10 MG SUPP PR PRN (13:39)
[2017-01-14] MEDS ORDERED: MAGNESIUM HYDROXIDE 30 ML UDCUP PO PRN (13:39)
[2017-01-14] MEDS ORDERED: LACTULOSE 20 GM/30 ML UDCUP PO PRN (13:39)
[2017-01-14] MEDS ORDERED: POLYETHYLENE GLYCOL 3350 17 GM PKT PO PRN (13:39)
[2017-01-14] MEDS ORDERED: ACETAMINOPHEN 325 MG TAB PO SCH (14:00)
[2017-01-14] MEDS: ACETAMINOPHEN 500 MG TAB PO SCH ×2 (15:26→20:33)
[2017-01-14] MEDS: SENNOSIDES/DOCUSATE SODIUM TAB PO SCH (20:02)
[2017-01-15] MEDS: KETOROLAC 30 MG/1 ML SDV IVP SCH ×5 (00:24→22:56)
[2017-01-15] MEDS ORDERED: CALCIUM CARBONATE 500 MG CHEWABLE TAB PO ONE ×2 (04:49→04:51)
[2017-01-15 06:49] LABS: ANION GAP 5 mEq/L (8-16); CALCIUM 8.2 mg/dL (8.5-10.4); CARBON DIOXIDE 28 mEq/l (22-31); CHLORIDE 105 mEq/L (97-110); CREATININE 0.8 mg/dL (0.7-1.3); GLOMERULAR FILTRATION RATE > 60; GLUCOSE 104 mg/dL (70-100); SODIUM 138 mEq/L (134-144)
[2017-01-15 06:55] LABS: % IMMATURE GRANULYOCYTES 0.2 % (0.0-1.1); ABSOLUTE IMMATURE GRANULOCYTES 0.02 10^3/uL (0.00-0.10); ADD DIFF? NO; ADD MORPH? NO; ADD SCAN? NO; ATYPICAL LYMPHOCYTE FLAG 0 (0-99); FRAGMENT RBC FLAG 20 (0-99); HEMATOCRIT 36.3 % (40.0-51.0); HEMOGLOBIN 12.2 g/dL (13.7-17.5); LEFT SHIFT FLG 0 (0-99); LIPEMIA HEMOLYSIS FLAG 80 (0-99); MEAN CELL HEMOGLOBIN 31.5 pg (27.9-34.1); MEAN CELL HEMOGLOBIN CONCENTR. 33.6 g/dL (32.4-36.7); MEAN CELL VOLUME 93.8 fL (81.5-99.8); PLATELET CLUMPS FLAG 0 (0-99); PLATELET COUNT 193 10^3/uL (150-400); RED BLOOD CELL COUNT 3.87 10^6/uL (4.40-6.38); RED CELL DISTRIBUTION WIDTH 13.7 % (11.5-15.2)
[2017-01-15] MEDS ORDERED: MAG HYDROX/AL HYDROX/SIMETH 30 ML UDCUP PO ONE (07:30)
[2017-01-15] MEDS: ACETAMINOPHEN 500 MG TAB PO SCH ×3 (07:42→22:38)
[2017-01-15] MEDS: LIDOCAINE 5% 1 EA PATCH TD SCH (08:58)
--- NOTE | 2017-01-15 09:39 | SOAPPROG ---
SOAP Progress Note Assessment/Plan: Assessment: Plan: Subjective: vss, af l chest tube with no air leak, changed to water seal. lungs clear, heart nml, abd soft. cxr ordered for today. Objective: Vital Signs Temp Pulse Resp BP Pulse Ox 36.9 C 66 16 126/72 H 100 01/15/17 08:14 01/15/17 08:14 01/15/17 08:14 01/15/17 08:14 01/15/17 08:14 Laboratory Results 01/15/17 04:47 01/15/17 04:47 01/14/17 01/15/17 01/16/17 05:59 05:59 05:59 Intake Total 600 Output Total 195 Balance 405 ICD10 Worksheet Patient Problems: Problems Problem Status Onset Hemothorax on left Acute Pneumothorax on left Acute
[2017-01-15] MEDS: SENNOSIDES/DOCUSATE SODIUM TAB PO SCH ×2 (10:07→20:46)
[2017-01-15] MEDS ORDERED: PANTOPRAZOLE SODIUM 40 MG in NS 100 ML IV SCH (21:00)
[2017-01-16] MEDS: ACETAMINOPHEN 500 MG TAB PO SCH ×2 (06:12→14:37)
[2017-01-16] MEDS: KETOROLAC 30 MG/1 ML SDV IVP SCH ×2 (06:12→12:02)
[2017-01-16 07:59] VITALS: RESP 14
[2017-01-16] MEDS: LIDOCAINE 5% 1 EA PATCH TD SCH (08:17)
[2017-01-16] MEDS: SENNOSIDES/DOCUSATE SODIUM TAB PO SCH (09:10)
--- NOTE | 2017-01-16 10:54 | TRAUMAPN ---
- Problem/Surgery Performed (1) Chest wall trauma Assessment/Plan: crushed by falling tree Qualifiers: Encounter type: initial encounter Qualified Code(s): S29.9XXA - Unspecified injury of thorax, initial encounter (2) Ribs, multiple fractures Assessment/Plan: pain well controlled without narcotics Qualifiers: Encounter type: initial encounter Fracture type: closed Laterality: bilateral Fracture healing: F Qualified Code(s): S22.43XA - Multiple fractures of ribs, bilateral, initial encounter for closed fracture (3) Hemothorax on left Assessment/Plan: Left chest tube removed using sterile technique/occlusive dressing applied will obtain post removal CXR and DC home if no significant pneumo Objective: Vital Signs Temp Pulse Resp BP Pulse Ox 36.8 C 65 14 120/68 95 01/16/17 07:56 01/16/17 07:56 01/16/17 07:56 01/16/17 07:56 01/16/17 07:56 Laboratory Results 01/15/17 04:47 01/15/17 04:47 01/15/17 01/16/17 01/17/17 05:59 05:59 05:59 Intake Total 600 1400 Output Total 195 265 Balance 405 1400 -265 - C-Spine Clearance Cervical Spine Cleared: Yes Provider who Cleared Cervical Spine: Dr. Lopez Physical Exam - Physical Exam General Appearance: alert, no apparent distress Neck: full range of motion Respiratory: lungs clear, normal breath sounds, other (left chest tube withough air leak on H2O seal/minimal drainage) Cardiac/Chest: regular rate, rhythm Abdomen: non-tender, soft Neuro/Psych: alert, normal mood/affect
[2017-01-16 14:50] VITALS: BP 117/72; PULSE 66; TEMP 97.9; O2SAT 97
--- NOTE | 2017-01-16 15:09 | SOAPPROG ---
Downtime Inpatient Late Entry SOAP Note: #[id number] SUMI Hodgson MD, FACS
--- NOTE | 2017-01-16 15:49 | GDS ---
[f rep st] DISCHARGE SUMMARY DISCHARGE DIAGNOSES: 1. Left hemopneumothorax. 2. Multiple left-sided rib fractures. 3. Status post blunt chest trauma after a tree fell on the patient 2 days prior to admission. 4. Left lower lobe pulmonary contusion. PROCEDURE PERFORMED: Dr. Gordon Lopez, 01/14/2017, placement of left closed tube thoracostomy. HOSPITAL COURSE: For details of admission history and physical, please see dictated summary. Brief ly, the patient is a 66-year-old male who 2 days prior to admission was sawing down a tree on his pr operty when the tree fell on him, crushing his chest. He presented to the emergency room and was fo und to have multiple left-sided rib fractures and a small pneumothorax. The patient returned for a followup the following day after initially refusing admission and a chest tube and ultimately return ed on the , at which time Dr. Lopez placed a left closed tube thoracostomy and admitted him to the hospital for observation. Dr. Gonzáles saw him the following day and placed his chest tube to water seal. I saw him on the day of discharge, at which time he had no air leak on water seal. His lung remained mostly expanded with a tiny apical pneumothorax. His output in the past 48 hours had been less than 100 mL. His chest tube was removed. A post procedure chest x-ray showed no change in the small apical pneumothorax and subcutaneous emphysema. He was discharged home with instructio ns and activity advancement and will follow up in my office in approximately 1-2 weeks for final sut ure removal. DISCHARGE MEDICATIONS: 1. Percocet 1-2 q.4 hours p.r.n. pain, #10 (patient does not plan on using these). 2. Tylenol 1000 mg p.o. q.8 hours p.r.n. pain. 3. Senokot-S 1 p.o. b.i.d. CONDITION AT THE TIME OF DISCHARGE: Improved. FOLLOWUP: Arranged in my office. /[id number]/MODL
== END 2017-01-16 15:42 | disposition home or self-care (01) | DRG 200 ==
LOC: F3N 12:34 → F3E 01-15 18:31
PROVIDERS: ADMIT Surgery; ATTEND Surgery
PROC: 0W9B30Z Drainage of Left Pleural Cavity with Drainage Device, Percutaneous Approach (ICD-10-PCS; principal; 2017-01-14)
PROC: 0BPQ30Z Removal of Drainage Device from Pleura, Percutaneous Approach (ICD-10-PCS; 2017-01-16)
DX: S27.2XXA Traumatic hemopneumothorax, initial encounter (principal); S27.321A Contusion of lung, unilateral, initial encounter; S22.43XA Multiple fractures of ribs, bilateral, initial encounter for closed fracture; W22.8XXA Striking against or struck by other objects, initial encounter; Y92.017 Garden or yard in single-family (private) house as the place of occurrence of the external cause
CPT/HCPCS: 82947-QW; 92523-GN; 96374; 97161-GP; 97165-GO; G8978-GP-CI; G8979-GP-CI; G8980-GP-CI; G8987-GO-CI; G8988-GO-CI; G8989-GO-CI; G9165-GN-CH; G9166-GN-CH; G9167-GN-CH; J1170; J1885; J2405; J3010; Q9967